=== PATIENT | male | born 2005 | race Caucasian/White ===

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

== ENCOUNTER 2023-11-17 22:56 | Emergency (ER) | payer SELFPAY ==
[~2023-11-17] VITALS: Ht 170.2 cm; Wt 64.9 kg
[~2023-11-17 22:56] MED LIST: AZIT250T4 PO; IBUP-2213 PO; PROM118S5 PO
[2023-11-17 23:21] VITALS: BP 133/77; PULSE 114; RESP 18; TEMP 98; O2SAT 98
[2023-11-18 00:47] VITALS: BP 133/77; PULSE 114; RESP 18; TEMP 98
[2023-11-18 00:48] VITALS: O2SAT 98
[2023-11-18 01:22] LABS: BASOPHILS % (AUTO) 0.2 % (0.0-2.0); HEMATOCRIT 50.8 % (36-52); HEMOGLOBIN 17.7 g/dL (12.0-18.0); LYMPHOCYTES # (AUTO) 0.3 K/uL (2.0-11.5); MEAN CORPUSCULAR HEMOGLOBIN 30 pg (27-31); MEAN CORPUSCULAR HGB CONC 35 g/dL (33-37); MEAN CORPUSCULAR VOLUME 85.7 fL (80-94); MONOCYTES # (AUTO) 0.8 K/uL (0.8-1.0); MONOCYTES % (AUTO) 6.3 % (1.7-9.3); NEUTROPHILS # (AUTO) 12.2 K/uL (1.8-7.7); NEUTROPHILS % (AUTO) 91.5 % (42.2-75.2); PLATELET COUNT (AUTO) 213 K/uL (140-450); RED BLOOD CELL COUNT(AUTO) 5.93 MIL/uL (4.20-6.10); RED CELL DISTRIBUTION WIDTH 13.8 % (11.6-13.7); WHITE BLOOD COUNT (AUTO) 13.3 K/uL (4.5-11.0)
[2023-11-18] MEDS: ONDANSETRON 4 MG/2 ML VIAL IVP ONE (01:26)
[2023-11-18] MEDS: KETOROLAC 30 MG/ML VIAL IVP ONE (01:29)
[2023-11-18] MEDS: NACL 0.9% 1,000 ML IV ONE (01:30)
[2023-11-18 01:38] LABS: ANION GAP 15.3 (8-16); CALCIUM 9.2 mg/dL (8.5-10.1); CARBON DIOXIDE 26.8 mmol/L (21-32); CREATININE 1.1 mg/dL (0.6-1.3); POTASSIUM 4.1 mmol/L (3.5-5.1)
[2023-11-18 01:42] LABS: ALBUMIN 4.7 g/dL (3.4-5.0); BILIRUBIN,DIRECT 0.2 mg/dL (0.0-0.3); TOTAL BILIRUBIN 0.9 mg/dL (0.0-1.0); TOTAL PROTEIN, SERUM 8.3 g/dL (6.4-8.2)
[2023-11-18 02:52] LABS: APPEARANCE,URINE CLEAR (CLEAR); BILIRUBIN,URINE NEGATIVE (NEGATIVE); BLOOD, URINE NEGATIVE (NEGATIVE); COLOR,URINE YELLOW (YELLOW); LEUKOCYTE ESTERASE ,URINE NEGATIVE (NEGATIVE); NITRITE, URINE NEGATIVE (NEGATIVE); PROTEIN,URINE TRACE (NEGATIVE); UGLUCOSE NEGATIVE (NEGATIVE); UROBILINOGEN,URINE 0.2 EU/dL (0.2 - 1)
[2023-11-18] MEDS ORDERED: NAPR-337 PO (03:31)
[2023-11-18] MEDS ORDERED: ONDA-188 SL (03:31)
[2023-11-18] MEDS ORDERED: METR-435 PO (03:31)
== END 2023-11-18 03:39 | disposition home or self-care (01) ==
LOC: MED 22:56
DX: R19.7 Diarrhea, unspecified (principal); E86.0 Dehydration; M79.18 Myalgia, other site; R00.0 Tachycardia, unspecified; Z79.899 Other long term (current) drug therapy
CPT/HCPCS: 36415; 80048; 80076; 81003; 83690; 85025; 96361; 96374; 96375; 99284; J1885; J2405; J7030